=== PATIENT | female | born 1960 | race Caucasian/White ===

== ENCOUNTER 2022-10-13 09:42 | Day surgery (SDC) | payer OTHER ==
[2022-10-07 14:30] VITALS: BMI 21.7
[2022-10-13 10:31] VITALS: RESP 16
[2022-10-13 12:56] VITALS: TEMP 97.7
[2022-10-13 13:04] VITALS: BP 138/64; PULSE 64
== END 2022-10-13 12:50 | disposition home or self-care (01) ==
LOC: FASU-ENDO 09:42
PROVIDERS: ATTEND Internal Medicine Gastroenterology
PROC: 0DJD8ZZ Inspection of Lower Intestinal Tract, Via Natural or Artificial Opening Endoscopic (ICD-10-PCS; principal; 2022-10-13 11:29)
DX: Z12.11 Encounter for screening for malignant neoplasm of colon (principal); K64.1 Second degree hemorrhoids; K64.8 Other hemorrhoids; K57.30 Diverticulosis of large intestine without perforation or abscess without bleeding; Z86.010 Personal history of colon polyps